=== PATIENT | female | born 1935 | race African-American/Black ===

== ENCOUNTER → 2016-12-03 | Outpatient (CLI) | payer MEDICARE, BC ==
[~2016-12-03] MED LIST: ASPIRIN PO; BAYER ASPIRIN325 M1 PO; BENADRYL PO; CLINORIL PO; FEXOFENADINE HC60 MG PO; INDAPAMIDE1.25 MG PO; KCL PO; LASIX PO; MULTI VITAMIN1 EACH PO; OMEPRAZOLE20 M2 PO; REGLAN PO; RESTASIS32 EA OP; SYNTHROID PO; TIMOPTIC2.5 ML OP; VITAMIN D250000 UNIT PO
--- NOTE | ~2016-12-03 | CT2 ---
[facility] A Service of [facility] & [facility] RADIOLOGY TEXT RESULTS PATIENT: DINO MARTÍNEZ LOCATION: CIVR : 35 UNIT #: [id number] AGE: [address]: Abel Callaway MD SEX: F ORDER DR: [id number] [facility] [address] [place], [place] [address] [id number] O MR#: [id number] Acc #: [id number] NAME: DINO MARTÍNEZ : 1935 SEX: F STUDY DATE/TIME: 12/03/2016 13:57 UNIT: CIVR ROOM: STUDY DESCRIPTION: CT Abd and Pelv W Cont Attending Physician: Abel Callaway Jr., M.D. Referring Physician: Abel Callaway Jr., M.D. Ordering Physician: Abel Callaway Jr., M.D. Primary Care Physician: Laureano Garcia M.D. MEDICAL IMAGING REPORT This report is preliminary unless electronic signature is present EXAM CT abdomen and pelvis with IV contrast, 12/03/[address] abdomen and pelvis with oral and IV contrast, with multiplanar reformats. This CT exam was performed with one or more of the following radiation dose reduction techniques: Automatic exposure control, adjustment of mA and/or kV according to patient size, and iterative reconstruction. COMPARISON Prior CT 08/07/2016 CLINICAL HISTORY Abdominal pain and bloating and nausea, symptoms for 10 years. Constipation. FINDINGS The lung bases are unremarkable. ABDOMEN: The gallbladder has been removed. There is no hepatic mass or substantial intrahepatic ductal dilatation. The extrahepatic common duct is mildly prominent, a normal postcholecystectomy finding. There are scattered small calcifications throughout the pancreas, but no mass or inflammatory changes seen nor interval change since 08/07/2016. The aorta is normal in caliber. There are small renal simple cortical cysts, but the kidneys are otherwise normal. There is no bowel obstruction. There is moderate colonic diverticulosis but no CT evidence to suggest diverticulitis or bowel obstruction. PELVIS: The appendix is not identified, but there is certainly no CT evidence to suggest appendicitis. There is sigmoid colonic STS. [facility] A Service of [facility] & [facility] RADIOLOGY TEXT RESULTS PATIENT: DINO MARTÍNEZ LOCATION: [facility] #: [id number] : 35 UNIT #: [id number] AGE: [address]: Abel Callaway MD SEX: F ORDER DR: diverticulosis, again without evidence of diverticulitis. There is spinal degenerative change without acute bony abnormality. IMPRESSION 1. No acute findings. Chronic postop changes as above, no acute abnormality. No renal or bowel or biliary obstruction. Diverticulosis without diverticulitis. Dictated by... Arnulfo Conte M.D. THIS IS AN ELECTRONICALLY VERIFIED REPORT Arnulfo Conte M.D. at 12/05/2016 1:23 PM TEV/psc TD: 12/03/2016 21:29 JOB #: [id number] MEDICAL IMAGING REPORT Page 1 of 1 COPY
--- NOTE | ~2016-12-03 | XA166 ---
[facility] A Service of [facility] RADIOLOGY TEXT RESULTS PATIENT: DINO MARTÍNEZ LOCATION: CIVR : 35 UNIT #: [id number] AGE: [address]: Abel Callaway MD SEX: F ORDER DR: [id number] [facility] [address] [place], [place] [address] [id number] O MR#: [id number] Acc #: [id number] NAME: DINO MARTÍNEZ : 1935 SEX: F STUDY DATE/TIME: 12/03/2016 11:20 UNIT: CIVR ROOM: STUDY DESCRIPTION: XA PICC Line Placement WO Port Attending Physician: Abel Callaway Jr., M.D. Referring Physician: Abel Callaway Jr., M.D. Ordering Physician: Abel Callaway Jr., M.D. Primary Care Physician: Laureano Garcia M.D. MEDICAL IMAGING REPORT This report is preliminary unless electronic signature is present EXAM Right-sided PICC line placement INDICATION Need for IV access. Patient is to undergo a CT scan of the chest, abdomen and pelvis today. Patient has a history of dyspnea, abdominal pain, and bloating for 10 years. PRE-PROCEDURE The procedure was explained to the patient and/or patient commissary representative including risks, benefits, potential complications and potential for alternative forms of treatment. Informed consent was obtained, and prior to initiating the procedure a formal timeout procedure was performed. PROCEDURE Using full standard sterile barrier technique, including caps, gowns, gloves, masks, as well as sterile skin preparation and standard sterile draping, the right arm was prepped and draped in the usual fashion, and real-time sterile ultrasound guidance was used to localize an arm vein and to confirm vessel patency. A hard copy ultrasound image was recorded. After local anesthesia with 1% Xylocaine, the vein was punctured using real-time sterile ultrasound guidance, and an 0.018 guidewire was advanced into the superior vena cava, using fluoroscopic guidance. A 4-Ugandan single-lumen PICC was then measured and deployed with the tip positioned in the superior vena cava. The position of the line was documented with a radiographic image. The line was secured in place with an adhesive dressing and an antibiotic patch was applied. Total fluoro time was 0.1 minutes. A single fluoroscopic image was obtained. IMPRESSION Successful placement of a 4-Ugandan single-lumen PowerPICC via the arm STS. [facility] A Service of [facility] RADIOLOGY TEXT RESULTS PATIENT: DINO MARTÍNEZ LOCATION: [facility] : 35 UNIT #: [id number] AGE: [address]: Abel Callaway MD SEX: F ORDER DR: under ultrasound and fluoroscopic guidance. The tip of the PICC is in good position in the superior vena cava. Dictated by... Jenifer Gallagher M.D. THIS IS AN ELECTRONICALLY VERIFIED REPORT Jenifer Gallagher M.D. at 12/04/2016 4:42 PM AFF/aa TD: 12/04/2016 10:06 JOB #: [id number] MEDICAL IMAGING REPORT Page 1 of 1 COPY
--- NOTE | ~2016-12-03 | CT55 ---
[facility] A Service of [facility] RADIOLOGY TEXT RESULTS PATIENT: DINO MARTÍNEZ LOCATION: CIVR : 35 UNIT #: [id number] AGE: [address]: Abel Callaway MD SEX: F ORDER DR: [id number] [facility] [address]. [place], [place] [address] [id number] O MR#: [id number] Acc #: [id number] NAME: DINO MARTÍNEZ : 1935 SEX: F STUDY DATE/TIME: 12/03/2016 13:57 UNIT: CIVR ROOM: STUDY DESCRIPTION: CT Chest W Con Attending Physician: Abel Callaway Jr., M.D. Referring Physician: Abel Callaway Jr., M.D. Ordering Physician: Abel Callaway Jr., M.D. Primary Care Physician: Laureano Garcia M.D. MEDICAL IMAGING REPORT This report is preliminary unless electronic signature is present EXAM Chest CT with contrast, date of study is 12/03/2016. COMPARISON None PROCEDURE Axial contrast-enhanced chest CT with multiplanar reformats. This CT exam was performed with one or more of the following radiation dose reduction techniques: automatic exposure control, adjustment of mA and/or kV according to patient size, and iterative reconstruction. HISTORY 10-year history of dyspnea, accompanied by abdominal pain and bloating. FINDINGS There is moderately advanced emphysema in upper lobe predominance. 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 There is no consolidation, effusion, or pneumothorax. There is no mediastinal or hilar adenopathy. Images of the upper abdomen show multiple surgical clips, but no acute abnormality. There is a left renal cortical exophytic simple cyst. The bony structures are normal. IMPRESSION Moderate emphysematous change, with an upper lobe predominance. No consolidation, effusion, pneumothorax or suspicious nodule. No acute abnormality. Dictated by... [facility] A Service of [facility] RADIOLOGY TEXT RESULTS PATIENT: DINO MARTÍNEZ LOCATION: [facility] : 35 UNIT #: [id number] AGE: [address]: Abel Callaway MD SEX: F ORDER DR: Arnulfo Conte M.D. THIS IS AN ELECTRONICALLY VERIFIED REPORT Arnulfo Conte M.D. at 12/05/2016 1:13 PM NICOLE/nohemy TD: 12/03/2016 19:24 JOB #: [id number] MEDICAL IMAGING REPORT Page 1 of 1 COPY
[2016-12-03 13:25] LABS: POC - GFR >60.0 mL/min (>60)
== END | disposition home or self-care (01) ==
LOC: CIVR 10:47
PROVIDERS: Surgery
PROC: 02HV33Z Insertion of Infusion Device into Superior Vena Cava, Percutaneous Approach (ICD-10-PCS; principal; 2016-12-03)
DX: Z45.2 Encounter for adjustment and management of vascular access device (principal); R06.00 Dyspnea, unspecified; R10.9 Unspecified abdominal pain; R14.0 Abdominal distension (gaseous); J98.4 Other disorders of lung; K57.30 Diverticulosis of large intestine without perforation or abscess without bleeding
CPT/HCPCS: 36415; 71260; 74177; 76937; 77001; 80048; 82550; 82565; 83036; 85025; C1751; Q9967